=== PATIENT | female | born 2000 | race Asian ===

== ENCOUNTER 2018-08-29 15:00 | Emergency (ER) | payer MEDICAID ==
[~2018-08-29] VITALS: Ht 172.7 cm; Wt 75.0 kg
[2018-08-29 15:24] LABS: BASOPHILS # (AUTO) 0.01 x10^3/uL (0-0.3); BASOPHILS % (AUTO) 0 % (0-1); EOSINOPHILS # (AUTO) 0.35 x10^3/uL (0-0.8); EOSINOPHILS % (AUTO) 3 % (1-7); LYMPHOCYTES # (AUTO) 1.76 x10^3/uL (1-6.1); LYMPHOCYTES % (AUTO) 17 % (22-44); MD NO; MEAN CORPUSCULAR HGB CONC 33.7 g/dL (32.4-35.8); MEAN PLATELET VOLUME 7.1 fL (7.4-10.4); MONOCYTES # (AUTO) 0.65 x10^3/uL (0-1.4); MONOCYTES % (AUTO) 6 % (2-9); NEUTROPHILS % (AUTO) 74 % (42-75); PLATELET COUNT 376 x10^3/uL (130-400); RED BLOOD COUNT 4.32 x10^6/uL (3.82-5.3); RED CELL DISTRIBUTION WIDTH 12.5 % (9.6-15.2)
[2018-08-29 15:27] LABS: CHLORIDE 106 mmol/L (98-107)
[2018-08-29 15:31] LABS: MICROSCOPIC NOT IND
--- NOTE | 2018-08-29 15:33 | NUR ---
THIS IS A 18 YO FEMALE C/O RLQ PAIN AND N/V X 1 EPISODE SINCE THIS MORNING. PT REPORTS LMP APPROX 1.5 MONTHS AGO. PT NONTENDER UPON PALPATION. PT AO X 4. SKIN PWD. RESP EVEN AND EQAUL. NAD NOTED. URINE SAMPLE OBTAINED AND SENT TO LAB. PT AWARE WE ARE BLOOD LABS RESULTS. PT DENIES OTHER NEEDS AT THIS TIME. CALL LIGHT WITHIN REACH.
[2018-08-29 15:34] LABS: ALBUMIN 3.5 g/dL (3.4-5.0); ANION GAP 8 mmol/L (5-15); CALCIUM 8.3 mg/dL (8.5-10.1)
[2018-08-29 15:34] LABS: CULTURE INDICATED? NO
[2018-08-29 15:51] LABS: ALANINE AMINOTRANSFERASE 21 U/L (12-78); ALKALINE PHOSPHATASE 85 U/L (45-117); BILIRUBIN,TOTAL 0.3 mg/dL (0.2-1.0); CREATININE 0.76 mg/dL (0.55-1.02); TOTAL PROTEIN 7.5 g/dL (6.4-8.2)
--- NOTE | 2018-08-29 16:34 | NUR ---
PT TO CT SCAN VIA RGERRY AT THIS TIME. NAD NOTED. SKIN PWD. RESP EVEN AND UNLABORED. WILL CONT OT MONITOR PT.
[2018-08-29] MEDS ORDERED: OMNIPAQUE 350 MG/ML, 100ML BOTTLE ONE (17:05)
--- NOTE | 2018-08-29 17:30 | NUR ---
PT CURRENTLY RESTING ON [employer]. NAD NOTED. SKIN PWD. RESP EVEN AND UNLABORED. PT CURRENTLY DENIES N/V. FRIENDS AT BEDSIDE. PT AO X 4. PT ON CONT BP AND O2 MONITORS. CALL LIGHT WITHIN REACH. WILL CONT TO MONITOR PT.
--- NOTE | 2018-08-29 18:42 | NUR ---
PT CURRENTLY RESTING ON GURNEY. NAD NOTED. SKIN PWD. RESP EVEN AND EQAUL. PT AWARE THAT WE ARE WAITING ON RECHECK BY NITA TORRES. PT ON CONT BP AND O2 MONITORS. CALL LIGHT WITHIN REACH. WILL CONT TO MONITOR PT.
--- NOTE | 2018-08-29 18:58 | NUR ---
REPORT TO QUINCY SHERMAN WHO ASSUMED CARE OF PT.
--- NOTE | 2018-08-29 19:36 | NUR ---
given dc instruction with follow up appointment pt and friend understood
[2018-08-29 19:38] VITALS: BP 118/64
== END 2018-08-29 19:39 | disposition home or self-care (01) ==
LOC: ED 17:24
DX: R10.31 Right lower quadrant pain (principal); D36.9 Benign neoplasm, unspecified site; F17.200 Nicotine dependence, unspecified, uncomplicated
CPT/HCPCS: 36415; 74177; 80053; 81003; 83690; 84703; 85025; 99284; Q9967

== ENCOUNTER 2018-10-23 16:10 | Emergency (ER) | payer MEDICAID ==
[~2018-10-23] VITALS: Ht 172.7 cm; Wt 81.7 kg
[2018-10-23 16:12] VITALS: BP 138/92
== END 2018-10-23 17:42 | disposition home or self-care (01) ==
LOC: ED 17:15
DX: Z32.00 Encounter for pregnancy test, result unknown (principal)
CPT/HCPCS: 99281